=== PATIENT | female | born 1975 | race Caucasian/White ===

== ENCOUNTER 2018-04-15 15:53 | Observation (INO) ==
[2018-04-15] MEDS ORDERED: Famotidine PF Inj 20 MG/2 ML Vial IV.PUSH ONE (16:46)
--- NOTE | 2018-04-15 16:48 | ED ---
HPI General Chief complaint: Chest Pain Stated complaint: Pt states pain in the sterum area Time Seen by Provider: 04/15/18 16:45 History of Present Illness HPI narrative: 42-year-old female with a history of HTN presents to the ED for evaluation of epigastric/lower chest pain. The patient states that last night she had nausea after eating pizza with jalapenos. States that this morning when she got up she continued to have nausea and also had epigastric/lower chest wall pressure. States that it feels as if someone is sitting on her. States it has been intermittent throughout the day. Pain was worse after she ate lunch. Denies any alleviating factors. Denies any fever, chills, vomiting , diarrhea, constipation, lightheadedness, dizziness. Denies , last menstrual period 3 weeks ago. States that she has a history of gallstones. She has a strong family history of heart disease, father with OH in 50s. No other complaints. Related Data Home Medications Medication Instructions Recorded Confirmed metoprolol tartrate 25 mg PO DAILY 04/15/18 04/15/18 Allergies Allergy/AdvReac Type Severity Reaction Status Date / Time No Known Allergies Allergy Verified 04/15/18 17:17 Review of Systems ROS: all other systems reviewed are negative [facility] Medical History Medical History History of anxiety (Acute) Hypertension (Acute) Social History Social History Substance History: No History of Abuse Second Hand Smoke Exposure: No Smoking Status: Never smoker Tobacco Type: Cigarettes How Often Do You Have a Drink Containing Alcohol: Never Recent Travel in [facility] within the Last 8 Weeks: No Recent Out of Country Travel within the Last 8 Weeks: No Immunization History Tetanus Immunization: >5 Years Hx Influenza Vaccine This Season: Yes Exam Narrative Exam Narrative: GENERAL: Well-nourished and well-developed pleasant patient in no acute distress who is nontoxic appearing. SKIN: Warm and dry. HEAD: Normocephalic and atraumatic. EYES: No injection, drainage, or hyphema noted. PERRLA. EOMI. ENT: No nasal drainage noted. Oropharynx is clear. NECK: Supple and the trachea is midline. CARDIOVASCULAR: Regular rate and rhythm. RESPIRATORY: Breath sounds are equal bilaterally with no accessory muscle use, wheezing, rhonchi, or crackles. GASTROINTESTINAL: Epigastric tenderness to palpation. Negative Stanley's sign. Abdomen is soft and nondistended. No rebound tenderness or guarding. MUSCULOSKELETAL: No obvious deformities, swelling, cyanosis, or ecchymosis is present throughout the upper and lower extremities. Patient has full range of motion without any signs of neurovascular compromise. Distal pulses are 2+ throughout. NEUROLOGICAL: Awake, alert, and oriented. Normal speech and gait. Cranial nerves are grossly intact. Course Initial Documented Vital Signs Temperature 98.9 F 04/15/18 15:58 Pulse Rate 89 04/15/18 15:58 Respiratory Rate 20 04/15/18 15:58 Blood Pressure 180/97 H 04/15/18 15:58 Pulse Oximetry 100 04/15/18 15:58 Last Documented Vital Signs Temperature 98.8 F 04/16/18 11:37 Pulse Rate 78 04/16/18 11:37 Respiratory Rate 18 04/16/18 11:37 Blood Pressure 120/65 04/16/18 11:37 Pulse Oximetry 96 04/16/18 11:37 Medical Decision Making DARREL Attestation DARREL supervised visit: Yes Attestation: I, Dr. Burgos, have reviewed the advance practice practitioner's documentation and am in agreement, met with the patient face to face, made the diagnosis, and the medical decision making was done by me. *My assessment and Findings: Patient is a 42-year-old female who presents with complaint of upper abdomen/lower chest pain today. She appears well and has slight tenderness on exam. EKG is without acute ischemic changes. Labs and imaging show steatohepatitis but no other acute abnormalities. She will be placed in the chest pain center for further evaluation and management. MDM Narrative Medical decision making narrative: 42-year-old female presents to the emergency department for evaluation of epigastric and lower chest pressure. Patient is afebrile, vital signs are stable. Her blood pressure is elevated initially at 180/97, has improved 165/79. IV access is obtained, labs have been drawn and sent. Patient placed on cardiac telemetry and pulse oximetry monitoring. EKG shows slight T-wave inversions in lead III, otherwise no acute ST elevations or depressions. Patient administered Zofran 4 mg IV, Pepcid and aspirin 325 mg. CBC unremarkable, coags are unremarkable, troponin is less than 0.02. LFTs are elevated but otherwise CMP is unremarkable. Gallbladder ultrasound shows hepatomegaly with suspected hepatic steatosis and gallstone, no obstruction or thickening of the wall. Chest x-ray is unremarkable. Patient has remained stable while here in the emergency department. Will admit patient to chest pain center for repeat cardiac enzymes, EKGs and possible stress testing. Medical Screen Exam Complete: Yes Emergency Medical Condition: Yes Differential Diagnosis Differential Diagnosis: Cholelithiasis versus cholecystitis versus gastritis versus PUD versus ACS Lab Data Result diagrams: 04/15/18 16:55 04/15/18 16:55 POC Results POC Urine Results Negative Lab Results 04/15/18 04/15/18 04/15/18 Range/Units 16:55 16:55 16:55 WBC 7.2 (4.0-11.0) th/mm3 RBC 4.19 (4.00-5.30) mil/mm3 Hgb 12.3 (11.6-15.3) gm/dL Hct 36.3 (35.0-46.0) % MCV 86.7 (80.0-100.0) fL MCH 29.4 (27.0-34.0) pg MCHC 33.9 (32.0-36.0) % RDW 14.0 (11.6-17.2) % Plt Count 228 (150-450) th/mm3 MPV 8.1 (7.0-11.0) fL Neut % (Auto) 70.8 H (16.0-70.0) % Lymph % (Auto) 22.6 (9.0-44.0) % [place] % (Auto) 4.9 (0.0-8.0) % Eos % (Auto) 1.1 (0.0-4.0) % Baso % (Auto) 0.6 (0.0-2.0) % Neut # (Auto) 5.1 (1.8-7.7) th/mm3 Lymph # (Auto) 1.6 (1.0-4.8) th/mm3 [place] # (Auto) 0.4 (0.0-0.9) th/mm3 Eos # (Auto) 0.1 (0.0-0.4) th/mm3 Baso # (Auto) 0.0 (0.0-0.2) th/mm3 WBC Differential . Differential Comment Auto diff final PT 9.9 (9.8-11.6) sec INR 1.0 Ratio APTT 22.4 L (24.3-30.1) sec Sodium 139 (136-145) meq/L Potassium 4.5 (3.5-5.1) meq/L Chloride 105 (98-107) meq/L Carbon Dioxide 24.2 (21.0-32.0) meq/L Anion Gap 10 (5-15) meq/L BUN 12 (7-18) mg/dL Creatinine 0.63 (0.50-1.00) mg/dL Estimated GFR Greater than 89 (>89) mL/min Random Glucose 90 (74-106) mg/dL Calcium 9.3 (8.5-10.1) mg/dL Total Bilirubin 0.9 (0.2-1.0) mg/dL AST 222 H (15-37) U/L ALT 141 H (10-53) U/L Alkaline Phosphatase 79 (45-117) U/L Total Creatine Kinase (26-192) U/L CK-MB (CK-2) (0.5-3.6) ng/mL Troponin I Less than 0.02 L (0.02-0.05) ng/mL Total Protein 7.5 (6.4-8.2) g/dL Albumin 3.6 (3.4-5.0) g/dL Lipase 126 (73-393) U/L 04/15/18 04/15/18 04/16/18 Range/Units 16:55 20:06 00:30 WBC (4.0-11.0) th/mm3 RBC (4.00-5.30) mil/mm3 Hgb (11.6-15.3) gm/dL Hct (35.0-46.0) % MCV (80.0-100.0) fL MCH (27.0-34.0) pg MCHC (32.0-36.0) % RDW (11.6-17.2) % Plt Count (150-450) th/mm3 MPV (7.0-11.0) fL Neut % (Auto) (16.0-70.0) % Lymph % (Auto) (9.0-44.0) % [place] % (Auto) (0.0-8.0) % Eos % (Auto) (0.0-4.0) % Baso % (Auto) (0.0-2.0) % Neut # (Auto) (1.8-7.7) th/mm3 Lymph # (Auto) (1.0-4.8) th/mm3 [place] # (Auto) (0.0-0.9) th/mm3 Eos # (Auto) (0.0-0.4) th/mm3 Baso # (Auto) (0.0-0.2) th/mm3 WBC Differential Differential Comment PT (9.8-11.6) sec INR Ratio APTT (24.3-30.1) sec Sodium (136-145) meq/L Potassium (3.5-5.1) meq/L Chloride (98-107) meq/L Carbon Dioxide (21.0-32.0) meq/L Anion Gap (5-15) meq/L BUN (7-18) mg/dL Creatinine (0.50-1.00) mg/dL Estimated GFR (>89) mL/min Random Glucose (74-106) mg/dL Calcium (8.5-10.1) mg/dL Total Bilirubin (0.2-1.0) mg/dL AST (15-37) U/L ALT (10-53) U/L Alkaline Phosphatase (45-117) U/L Total Creatine Kinase 168 Cancelled 147 (26-192) U/L CK-MB (CK-2) 1.3 (0.5-3.6) ng/mL Troponin I Cancelled Less than 0.02 L (0.02-0.05) ng/mL Total Protein (6.4-8.2) g/dL Albumin (3.4-5.0) g/dL Lipase (73-393) U/L Imaging Data Radiologist's impression: Chest X-Ray 04/15/18 16:46 CONCLUSION: Mild prominence cardiac silhouette otherwise negative Gallbladder Ultrasound 04/15/18 16:57 CONCLUSION: 1. Hepatomegaly with suspected hepatic steatosis. 2. Gallstone. Discharge Plan Discharge Disposition Patient Disposition: 30 Still Patient Discharge Condition Condition: Stable Discharge Order Discharge Orders: Discharge Order (Routine); Ordered 04/16/18 Ordered By: Jeb Mosquera Discharge Details Diagnosis: Atypical chest pain Physicians Team ED Provider: Treasure Burgos ED Midlevel Provider: Bev Botello Primary Care Provider: UNKNOWN, Attending Provider: Luis Slade Status ED Status: Left Department Discharge Information Discharge Date/Time: 04/15/18 20:22
--- NOTE | 2018-04-15 17:06 | XR ---
EXAM DATE: 04/15/2018 5:02 PM EDT AGE/SEX: 42 years / Female INDICATIONS: Chest pain CLINICAL DATA: This is the patient's initial encounter. Patient reports that signs and symptoms have been present for 1 day and indicates a pain score of 0/10. MEDICAL/SURGICAL HISTORY: Hypertension. None. COMPARISON: No prior exams available for comparison. FINDINGS: There is mild prominence cardiac silhouette. There is no pneumothorax. There is no overt congestive f ailure. There are no parenchymal inflammatory infiltrates. The portion of the bony skeleton visualize d is unremarkable. CONCLUSION: Mild prominence cardiac silhouette otherwise negative Electronically signed by: Sin Rivera MD 04/15/2018 5:05 PM EDT
[2018-04-15 17:30] LABS: Alanine Aminotransferase 141 U/L (10-53)
[2018-04-15 17:33] LABS: Alkaline Phosphatase 79 U/L (45-117); Total Protein 7.5 g/dL (6.4-8.2)
[2018-04-15 17:34] LABS: Albumin 3.6 g/dL (3.4-5.0); Anion Gap 10 meq/L (5-15); Aspartate Aminotransferase 222 U/L (15-37); Blood Urea Nitrogen 12 mg/dL (7-18); Calcium 9.3 mg/dL (8.5-10.1); Carbon Dioxide 24.2 meq/L (21.0-32.0); Chloride 105 meq/L (98-107); Glomerular Filtration Rate Greater Than 89 mL/min (>89); Glucose,Random 90 mg/dL (74-106); Lipase 126 U/L (73-393); Sodium 139 meq/L (136-145)
[2018-04-15 17:35] LABS: Creatine Kinase 168 U/L (26-192)
[2018-04-15 17:36] LABS: Baso % (Auto) 0.6 % (0.0-2.0); Eos # (Auto) 0.1 th/mm3 (0.0-0.4); Eos % (Auto) 1.1 % (0.0-4.0); Hematocrit 36.3 % (35.0-46.0); Hemoglobin 12.3 gm/dL (11.6-15.3); Lymph # (Auto) 1.6 th/mm3 (1.0-4.8); Lymph % (Auto) 22.6 % (9.0-44.0); Mean Corpuscular HGB Conc 33.9 % (32.0-36.0); Mean Corpuscular Hemoglobin 29.4 pg (27.0-34.0); Mean Corpuscular Volume 86.7 fL (80.0-100.0); Mean Platelet Volume 8.1 fL (7.0-11.0); Mono # (Auto) 0.4 th/mm3 (0.0-0.9); Mono % (Auto) 4.9 % (0.0-8.0); Neut # (Auto) 5.1 th/mm3 (1.8-7.7); Neut % (Auto) 70.8 % (16.0-70.0); Platelet Count 228 th/mm3 (150-450); Potassium 4.5 meq/L (3.5-5.1); Red Blood Count 4.19 mil/mm3 (4.00-5.30); White Blood Count 7.2 th/mm3 (4.0-11.0)
[2018-04-15 17:45] LABS: Activated Partial Thrombo Time 22.4 sec (24.3-30.1); Prothrombin Time 9.9 sec (9.8-11.6)
[2018-04-15 18:02] LABS: Creatine Kinase MB 1.3 ng/mL (0.5-3.6)
--- NOTE | 2018-04-15 18:21 | US ---
EXAM DATE: 04/15/2018 6:15 PM EDT AGE/SEX: 42 years / Female INDICATIONS: Nausea and vomiting with epigastric pain. CLINICAL DATA: This is the patient's initial encounter. Patient reports that signs and symptoms have been present for 2 days and indicates a pain score of 5/10. MEDICAL/SURGICAL HISTORY: Hypertension. None. COMPARISON: POI, US TRANSVAGINAL, 01/22/2015. . MEASUREMENTS: Liver:__ 20.6 cm. Common Bile Duct:__ 5mm. FINDINGS: Liver: Increased echotexture without focal lesion or ductal dilation. The liver is enlarged. Portal Vein: Hepatopedal flow seen in portal vein. Common Duct: No intraluminal mass or stone visualized. Gallbladder: There is a 2.4 cm echogenic focus seen in the gallbladder fundus with shadowing consist ent with a stone. The gallbladder wall is not thickened. Pancreas: The visualized portions are within normal limits Right Kidney: Normal echotexture and cortical thickness. No mass or hydronephrosis. CONCLUSION: 1. Hepatomegaly with suspected hepatic steatosis. 2. Gallstone. Electronically signed by: Issa Damon MD 04/15/2018 6:20 PM EDT
[2018-04-15] MEDS ORDERED: Acetaminophen 500 MG Tablet PO PRN (18:50)
[2018-04-16 01:16] LABS: Creatine Kinase 147 U/L (26-192)
[2018-04-16 07:22] VITALS: RESP 18
--- NOTE | 2018-04-16 11:17 | P.HPCA ---
History of Present Illness Primary Care Physician: UNKNOWN Chief Complaint: Chest pain History of Present Illness: This is a 42-year-old female the presents to ED to be evaluated for chest discomfort that was there all day yesterday. States that she had a burning discomfort inside of her chest/epigastric region. Is worse after she ate lunch. She also felt nauseous after having some crackers last evening. Denies shortness of breath or diaphoresis. Denies history of CAD. Denies . Discomfort did not radiate. History of hypertension. States that her father had an FL in his 50s. Non-smoker. - Diagnosis (1) Atypical chest pain (2) Hypertension Review of Systems General: Patient denies fevers, chills, and recent travel. HEENT: Patient denies headache, sore throat, difficulty swallowing. Cardiovascular: Has the chest discomfort as mentioned above. Denies sensation of heart beating rapidly or irregularly. No syncope. Respiratory: Denies shortness of breath or inspirational chest discomfort. Denies coughing wheezing or hemoptysis. GI: She was nauseous and had epigastric discomfort. Patient denies vomiting, diarrhea, bloody stools. Musculoskeletal: Patient denies joint pain or edema. Denies calf pain or edema. Neurovascular: Patient denies numbness, tingling, weakness in extremities. Denies headache. Endocrine: Denies polyuria and polydipsia. Hematologic: Denies easy bruising. Skin: Denies rash or itching. PMFSH - History History Provided By: Patient - Medical History Medical History: Medical History (Last Updated 04/15/18 @ 16:35 by Lindsay Razo RN) History of anxiety Hypertension - Tobacco History Second Hand Smoke Exposure: No Tobacco Use In Past 30 Days: No (quit year ago) Smoking Status: Never smoker Tobacco Type: Cigarettes - Alcohol History How Often Do You Have a Drink Containing Alcohol: Never - Substance Use History Substance History: No History of Abuse - Travel History Recent Travel in the [place] Within the Last 8 Weeks: No Recent Travel Out of the Country Within the Last 8 Weeks: No - Immunization History Tetanus Immunization: >5 Years Hx Influenza Vaccine This Season: Yes Medications and Allergies Active Medications: Active Medications Acetaminophen (Tylenol) 500 mg PO Q4H PRN PRN Reason: HEADACHE Ondansetron HCl (Zofran Inj) 4 mg IV.PUSH Q6H PRN PRN Reason: NAUSEA Sodium Chloride (Ns Flush) 2 ml IV.FLUSH UNSCH PRN PRN Reason: FLUSH AFTER USING IV ACCESS Last Admin: 04/15/18 19:27 Dose: 2 ml Sodium Chloride (Ns Flush) 2 ml IV.FLUSH PRN PRN PRN Reason: FLUSH AFTER USING IV ACCESS Sodium Chloride (Ns Flush) 2 ml IV.FLUSH BID FRANCY Last Admin: 04/16/18 08:37 Dose: 2 ml Allergies Allergy/AdvReac Type Severity Reaction Status Date / Time No Known Allergies Allergy Verified 04/15/18 17:17 Home Medications Medication Instructions Recorded Confirmed Type metoprolol tartrate 25 mg PO DAILY 04/15/18 04/15/18 History Exam Vital signs: Vital Signs 04/15/18 15:58 04/15/18 16:00 04/15/18 16:46 Temperature 98.9 F Pulse Rate 89 85 Respiratory Rate 20 16 16 Blood Pressure 180/97 H 165/79 H Pulse Oximetry 100 98 97 04/15/18 20:00 04/15/18 22:27 04/16/18 00:00 Temperature 97.9 F 98.0 F Pulse Rate 76 71 Respiratory Rate 16 20 Blood Pressure 135/76 131/78 Pulse Oximetry 97 97 96 04/16/18 04:15 04/16/18 07:21 04/16/18 08:24 Temperature 98.9 F Pulse Rate 69 68 62 Respiratory Rate 18 Blood Pressure Pulse Oximetry 98 Intake & Output 04/15/18 04/16/18 04/16/18 18:59 06:59 18:59 Weight 145.15 kg 146 kg Other: Date of Last Bowel Movement 04/15/18 Narrative: GENERAL: This is a well-nourished, well-developed patient, in no apparent distress. Patient speaks in clear complete sentences. Patient is pleasant. HEENT: Head is atraumatic and normocephalic. Neck is supple without lymphadenopathy and trachea is midline. No JVD or carotid bruits. CARDIOVASCULAR: Regular rate and rhythm without murmurs, gallops, or rubs. RESPIRATORY: Clear to auscultation. Breath sounds equal bilaterally. No wheezes , rales, or rhonchi. Chest wall is nontender. No use of accessory muscles. GASTROINTESTINAL: Abdomen is nontender, nondistended. Abdomen soft. No obvious pulsatile mass or bruit. No CVA tenderness. Strong femoral pulses bilaterally. Normal bowel sounds in all quadrants. MUSCULOSKELETAL: Patient is moving upper and lower extremities freely. No calf tenderness or edema, no Homans sign. Strong pulses in upper and lower extremities. NEUROLOGICAL: Patient is alert and oriented. Cranial nerves 2-12 are grossly intact. No focal deficits and speech is clear. SKIN: No rash and turgor is normal. Results 04/15/18 16:55 04/15/18 16:55 Cardiac Enzymes 04/15/18 04/15/18 04/15/18 Range/Units 16:55 16:55 20:06 AST 222 H (15-37) U/L CK-MB (CK-2) 1.3 (0.5-3.6) ng/mL Troponin I Less than 0.02 L Cancelled (0.02-0.05) ng/mL 04/16/18 Range/Units 00:30 AST (15-37) U/L CK-MB (CK-2) (0.5-3.6) ng/mL Troponin I Less than 0.02 L (0.02-0.05) ng/mL Coagulation 04/15/18 Range/Units 16:55 PT 9.9 (9.8-11.6) sec APTT 22.4 L (24.3-30.1) sec CBC 04/15/18 Range/Units 16:55 WBC 7.2 (4.0-11.0) th/mm3 RBC 4.19 (4.00-5.30) mil/mm3 Hgb 12.3 (11.6-15.3) gm/dL Hct 36.3 (35.0-46.0) % Plt Count 228 (150-450) th/mm3 Neut # (Auto) 5.1 (1.8-7.7) th/mm3 Lymph # (Auto) 1.6 (1.0-4.8) th/mm3 [place] # (Auto) 0.4 (0.0-0.9) th/mm3 Eos # (Auto) 0.1 (0.0-0.4) th/mm3 Baso # (Auto) 0.0 (0.0-0.2) th/mm3 Comprehensive Metabolic Panel 04/15/18 Range/Units 16:55 Sodium 139 (136-145) meq/L Potassium 4.5 (3.5-5.1) meq/L Chloride 105 (98-107) meq/L Carbon Dioxide 24.2 (21.0-32.0) meq/L BUN 12 (7-18) mg/dL Creatinine 0.63 (0.50-1.00) mg/dL Calcium 9.3 (8.5-10.1) mg/dL AST 222 H (15-37) U/L ALT 141 H (10-53) U/L Alkaline Phosphatase 79 (45-117) U/L Total Protein 7.5 (6.4-8.2) g/dL Albumin 3.6 (3.4-5.0) g/dL Intake and Output 04/15/18 04/16/18 04/16/18 22:59 06:59 14:59 Other: Date of Last Bowel Movement 04/15/18 Weight 145.15 kg 146 kg EKG interpretations - EKG EKG shows: sinus rhythm (EKGs are sinus rhythm without significant ST segment depressions or elevations. There are nonspecific inferior T-wave changes.) Caprini VTE Risk Assessment Caprini VTE Risk Assessment: No/Low Risk (score <= 1) Caprini Risk Assessment Model: Point Value = 1 Point Value = 2 Point Value = 3 Point Value = 5 Age 41-60 Minor surgery BMI > 25 kg/m2 Swollen legs Varicose veins or History of unexplained or recurrent spontaneous Oral contraceptives or hormone replacement Sepsis (< 1 month) Serious lung disease, including pneumonia (< 1 month) Abnormal pulmonary function Acute myocardial infarction Congestive heart failure (< 1 month) History of inflammatory bowel disease Medical patient at bed rest Age 61-74 Arthroscopic surgery Major open surgery (> 45 min) Laparoscopic surgery (> 45 min) Malignancy Confined to bed (> 72 hours) Immobilizing plaster cast Central venous access Age >= 75 History of VTE Family history of VTE Factor V Leiden Prothrombin [id number] Lupus anticoagulant Anticardiolipin antibodies Elevated serum homocysteine Heparin-induced thrombocytopenia Other congenital or acquired thrombophilia Stroke (< 1 month) Elective arthroplasty Hip, pelvis, or leg fracture Acute spinal cord injury (< 1 month) Prophylaxis Regimen: Total Risk Factor Score Risk Level Prophylaxis Regimen 0-1 Low Early ambulation 2 Moderate Order ONE of the following: *Sequential Compression Device (SCD) *Heparin 5000 units SQ BID 3-4 Higher Order ONE of the following medications: *Heparin 5000 units SQ TID *Enoxaparin/Lovenox 40 mg SQ daily (WT < 150 kg, CrCl > 30 mL/min) *Enoxaparin/Lovenox 30 mg SQ daily (WT < 150 kg, CrCl > 10-29 mL/min) *Enoxaparin/Lovenox 30 mg SQ BID (WT < 150 kg, CrCl > 30 mL/min) AND/OR *Sequential Compression Device (SCD) 5 or more Highest Order ONE of the following medications: *Heparin 5000 units SQ TID (Preferred with Epidurals) *Enoxaparin/Lovenox 40 mg SQ daily (WT < 150 kg, CrCl > 30 mL/min) *Enoxaparin/Lovenox 30 mg SQ daily (WT < 150 kg, CrCl > 10-29 mL/min) *Enoxaparin/Lovenox 30 mg SQ BID (WT < 150 kg, CrCl > 30 mL/min) AND *Sequential Compression Device (SCD) Assessment and Plan - Assessment (1) Atypical chest pain Code(s): R07.89 - Other chest pain Status: Acute (2) Hypertension Code(s): I10 - Essential (primary) hypertension Status: Acute - Plan * Atypical chest pain: Patient had serial cardiac enzymes and EKGs for ruling out purposes. She was seen by Dr. Ta of cardiology in the chest pain center. She will undergo a Paul protocol ETT and likely be discharged home if her stress test is nonischemic with instructions to follow-up PCP. Symptoms may be GI related. She should return to ED for interval issues. * Hypertension: Continue medication. Patient is stable at this time. She is agreeable to this plan. H&P: Quality - VTE Deep Vein Thrombosis/Pulmonary Embolism Present on Admission: No
[2018-04-16 11:39] VITALS: BP 120/65; PULSE 78; TEMP 98.8; O2SAT 96
--- NOTE | 2018-04-16 16:41 | TR ---
Date Performed: 04/16/2018 Time Performed: 09:53:55 DOCTOR: Kiana Ta DRUG LIST: CLINICAL HISTORY: REASON FOR TEST: REASON FOR ENDING: OBSERVATION: CONCLUSION: KASSIDY PROTOCOL. NO CP. TEST STOPPED AFTER EXCEEDING GOAL HR SECONDARY TO SOB AND LE G FATIGUE.Maximum AU=990 % Max HR Achieved=89.0% Maximum ZT=154/90 Total Exercise Time=6:01 COMMENTS: no ischemia
--- NOTE | 2018-04-16 20:33 | ECG ---
Date Performed: 04/15/2018 Time Performed: 22:58:37 PTAGE: 42 years EKG: Sinus rhythm LOW QRS VOLTAGE IN PRECORDIAL LEADS PATTERN CONSISTENT WITH PULMONARY DISEASE ABNORMAL ECG Since PREVIOUS TRACING , no significant change noted PREVIOUS TRACIN04/15/2018 19.40 DOCTOR: Kiana Ta Interpretating Date/Time 04/16/2018 20:32:14
--- NOTE | 2018-04-16 20:35 | ECG ---
Date Performed: 04/15/2018 Time Performed: 19:40:14 PTAGE: 42 years EKG: Sinus rhythm NORMAL ECG Since PREVIOUS TRACING , no significant change noted PREVIOUS TRACIN04/15/2018 16.07 DOCTOR: Kiana Ta Interpretating Date/Time 04/16/2018 20:33:51
--- NOTE | 2018-04-16 20:42 | ECG ---
Date Performed: 04/15/2018 Time Performed: 16:07:54 PTAGE: 42 years EKG: Sinus rhythm NORMAL ECG Since PREVIOUS TRACING , no significant change noted PREVIOUS TRACIN07/05/2014 20.39 DOCTOR: Kiana Ta Interpretating Date/Time 04/16/2018 20:40:57
== END 2018-04-16 13:04 | disposition home or self-care (01) ==
LOC: NEDA 15:53 → NEPE 15:53 → NEDA 20:22 → NEPFCDU 20:33
PROVIDERS: ADMIT Internal Medicine Cardiovascular Disease; ATTEND Internal Medicine Cardiovascular Disease